=== PATIENT | female | born 1950 | race African-American/Black ===

== ENCOUNTER 2019-02-13 05:49 | Inpatient (IN) | payer MEDICARE, MEDICAID, OTHER ==
[2019-02-13 06:30] LABS: WHITE BLOOD COUNT 8.5 10^3/ul (4.8-10.8)
[2019-02-13 06:30] LABS: ADD MAN DIFF? NO; BASOPHILS % 0.2 % (0.0-2.0); EOSINOPHILS # 0.1 10^3/ul (0.0-0.5); EOSINOPHILS % 0.6 % (0.0-7.0); HEMATOCRIT 41.6 % (37.0-47.0); HEMOGLOBIN 13.2 g/dl (12.0-16.0); LYMPHOCYTES # 2.1 10^3/ul (0.8-2.9); LYMPHOCYTES % 24.9 % (15.0-51.0); MEAN CORPUSCULAR HEMOGLOBIN 31.3 pg (29.0-33.0); MEAN CORPUSCULAR HGB CONC 31.7 g/dl (32.0-37.0); MEAN CORPUSCULAR VOLUME 98.6 fl (82.0-101.0); MEAN PLATELET VOLUME 11.6 fl (7.4-10.4); MONOCYTE # 0.4 10^3/ul (0.3-0.9); MONOCYTES % 5.2 % (0.0-11.0); NEUTROPHIL # 5.9 10^3/ul (1.6-7.5); NEUTROPHILS % 68.6 % (39.0-77.0); PLATELET COUNT 158 10^3/UL (140-415); RED BLOOD COUNT 4.22 10^6/ul (4.20-5.40); RED CELL DISTRIBUTION WIDTH 13.1 % (11.5-14.5)
[2019-02-13 06:52] LABS: ANION GAP 6 (5-13); BLOOD UREA NITROGEN 16 mg/dl (7-20); CALCIUM 9.6 mg/dl (8.4-10.2); CARBON DIOXIDE 33 mmol/L (21-31); CHLORIDE 104 mmol/L (97-110); CREATININE 0.93 mg/dl (0.44-1.00); Estimated GFR > 60 mL/min (>60); GLUCOSE 103 mg/dl (70-220); POTASSIUM 3.4 mmol/L (3.5-5.1); SODIUM 143 mmol/L (135-144)
[2019-02-13 06:55] LABS: INR 0.87; PROTIME 11.9 Sec (11.9-14.9); PT RATIO 0.9
[2019-02-13] MEDS ORDERED: DESFLURANE 15 MIN (07:00)
[2019-02-13] MEDS ORDERED: ONDANSETRON 4 MG INJ IV ×3 (08:00→18:30)
[2019-02-13] MEDS ORDERED: ACETAMINOPHEN 325 MG TAB PO ×2 (08:00→09:30)
[2019-02-13] MEDS: FENTAnyl 50 MCG/ML VIAL IV ×2 (08:06→20:29)
[2019-02-13] MEDS: POTASSIUM CHLORIDE 100 ML IVPB (09:09)
[2019-02-13] MEDS ORDERED: NACL 0.9% 3 ML SYG IV (09:30)
[2019-02-13] MEDS ORDERED: LIDOCAINE 5% PATCH TD (09:30)
[2019-02-13] MEDS ORDERED: DOCUSATE SODIUM 250 MG CAP PO (09:30)
[2019-02-13] MEDS ORDERED: ONDANSETRON 4 MG TAB PO (09:30)
[2019-02-13] MEDS ORDERED: ZOLPIDEM 5 MG TAB PO (09:30)
[2019-02-13] MEDS: OXYCODONE/ACETAMINOPHEN (5/325) TAB PO (09:48)
[2019-02-13 10:22] LABS: ADD UMIC NO; UR ASCORBIC ACID NEGATIVE (NEGATIVE); UR BILIRUBIN (Dip) NEGATIVE (NEGATIVE); UR BLOOD (Dip) NEGATIVE (NEGATIVE); UR CLARITY CLEAR (CLEAR); UR COLOR YELLOW (YELLOW); UR GLUCOSE (Dip) NEGATIVE (NEGATIVE); UR KETONES (Dip) NEGATIVE (NEGATIVE); UR LEUKOCYTE ESTERASE (Dip) NEGATIVE Leu/ul (NEGATIVE); UR NITRITE (Dip) NEGATIVE (NEGATIVE); UR SPECIFIC GRAVITY (Dip) 1.009 (1.003-1.030); UR TOTAL PROTEIN (Dip) NEGATIVE (NEGATIVE); UR UROBILINOGEN (Dip) NEGATIVE (NEGATIVE)
[2019-02-13 10:29] LABS: HEPATITIS B SURFACE ANTIGEN NEGATIVE (NEGATIVE)
[2019-02-13 10:47] LABS: HEPATITIS C VIRAL ANTIBODY NEGATIVE (NEGATIVE)
[2019-02-13] MEDS ORDERED: CEFAZOLIN 1 GM INJ (14:07)
[2019-02-13] MEDS ORDERED: PROPOFOL 20 ML ×2 (14:07→16:12)
[2019-02-13] MEDS ORDERED: MIDAZOLAM 1 MG/ML 2 ML INJ (14:08)
[2019-02-13] MEDS ORDERED: METOCLOPRAMIDE 10 MG INJ (14:08)
[2019-02-13] MEDS ORDERED: ROPIVACAINE 0.5 % 30 ML VIAL (14:08)
[2019-02-13] MEDS ORDERED: ONDANSETRON 4 MG INJ (14:08)
[2019-02-13] MEDS ORDERED: morphine SULFATE/PF (10 MG/10 ML) INJ (14:08)
[2019-02-13] MEDS ORDERED: FENTAnyl 50 MCG/ML VIAL ×2 (14:12→19:11)
[2019-02-13] MEDS ORDERED: DIPHENHYDRAMINE 50 MG INJ (14:31)
[2019-02-13] MEDS ORDERED: MEPERIDINE 100 MG INJ (14:31)
[2019-02-13] MEDS ORDERED: DEXAMETHASONE 4 MG/ML 5 ML INJ (14:31)
[2019-02-13] MEDS ORDERED: ROCURONIUM 50 MG INJ ×2 (14:36→16:12)
[2019-02-13] MEDS: TRANEXAMIC ACID 1GM/100ML(PMX) 100 ML IV ×2 (15:00)
[2019-02-13] MEDS ORDERED: EPHEDrine 25 MG/5 ML SYG (15:05)
[2019-02-13] MEDS ORDERED: PHENYLephrine (100 MCG/ML) 10ML SYG (15:11)
[2019-02-13] MEDS ORDERED: OXYCODONE/ACETAMINOPHEN (5/325) TAB PO ×2 (15:30)
[2019-02-13] MEDS ORDERED: DIPHENHYDRAMINE 50 MG INJ IV ×2 (15:30→18:30)
[2019-02-13] MEDS: TRANEXAMIC ACID 1GM/100ML(PMX) 100 ML ×2 (15:36→18:01)
[2019-02-13] MEDS: LORAZEPAM 2 MG INJ IV (16:00)
[2019-02-13] MEDS: BACITRACIN 50000 UNITS INJ (16:01)
[2019-02-13] MEDS: POLYMYXIN B 500000 UNIT INJ (16:02)
[2019-02-13] MEDS ORDERED: METOPROLOL 5 MG INJ (16:02)
[2019-02-13] MEDS: TOBRAMYCIN 1.2 GM POWDER (16:04)
[2019-02-13] MEDS: VANCOMYCIN 1 GM INJ (16:05)
[2019-02-13] MEDS ORDERED: NEOSTIGMINE 3 MG/3 ML SYRINGE (18:03)
[2019-02-13] MEDS ORDERED: GLYCOPYRROLATE 0.4 MG INJ (18:03)
[2019-02-13] MEDS ORDERED: NA PHOSPHATE/BIPHOS 133 ML ENEMA PR (18:30)
[2019-02-13] MEDS ORDERED: BISACODYL 10 MG SUPP PR (18:30)
[2019-02-13] MEDS: DOCUSATE SODIUM 100 MG CAP PO ×2 (18:30→22:20)
[2019-02-13] MEDS ORDERED: MEPERIDINE 25 MG INJ IM (18:30)
[2019-02-13] MEDS ORDERED: oxyCODONE 5 MG TAB PO (18:30)
[2019-02-13] MEDS ORDERED: MAGNESIUM HYDROXIDE 30ML CUP PO (18:30)
[2019-02-13] MEDS ORDERED: NALOXONE (0.4 MG/ML) INJ IV (18:30)
[2019-02-13] MEDS ORDERED: SENNA/DOCUSATE NA (8.6MG/50MG) TAB PO (18:30)
[2019-02-13] MEDS: ONDANSETRON 4 MG INJ IV (19:16)
[2019-02-13] MEDS: MEPERIDINE 25 MG INJ IV (19:17)
[2019-02-13] MEDS: CEFAZOLIN 2 GM/50 ML (PMX) 50 ML IVPB (19:20)
[2019-02-13] MEDS: oxyCODONE 5 MG TAB PO (19:37)
[2019-02-13] MEDS: LACTATED RINGER'S 1,000 ML IV (19:41)
[2019-02-13] MEDS ORDERED: FENTAnyl 50 MCG/ML VIAL IV ×2 (20:30)
[2019-02-13] MEDS ORDERED: HEPARIN 5,000 UNIT/1 ML VIAL SC (21:00)
[2019-02-13] MEDS: METOPROLOL (XL) 100 MG TAB PO ×2 (21:00→22:37)
[2019-02-13] MEDS: LATANOPROST 0.005% 2.5 ML OPH BOTH EYES ×2 (21:00→22:19)
[2019-02-13] MEDS: GABAPENTIN 300 MG CAP PO ×2 (21:00→22:19)
[2019-02-13] MEDS ORDERED: oxyCODONE (CR) 40 MG TAB [oxyCONTIN] PO (21:00)
[2019-02-13] MEDS: oxyCODONE (CR) 20 MG TAB [oxyCONTIN] PO (22:12)
[2019-02-13] MEDS: SENNA TAB PO (22:20)
[2019-02-13] MEDS: hydrOXYzine HCL 25 MG TAB PO (22:20)
[2019-02-13] MEDS: traZODone 100 MG TAB PO (22:20)
[2019-02-13] MEDS: TOPIRAMATE 25 MG TAB PO (22:21)
[2019-02-13] MEDS: ARIPIPRAZOLE 5 MG TAB PO (22:21)
[2019-02-13] MEDS: CYANOCOBALAMIN 1000 MCG INJ IM (22:21)
[2019-02-13] MEDS: FAMOTIDINE 20 MG TAB PO (22:21)
[2019-02-13] MEDS: ACETAMINOPHEN 500 MG TAB PO (22:22)
[2019-02-14] MEDS: SOD CHLORIDE 0.9% 250 ML IV ×3 (00:09→01:18)
[2019-02-14 00:26] LABS: HEMATOCRIT 27.5 % (37.0-47.0); HEMOGLOBIN 9.1 g/dl (12.0-16.0)
[2019-02-14] MEDS: CEFAZOLIN 2 GM/50 ML (PMX) 50 ML IVPB ×2 (02:44→11:22)
[2019-02-14 05:10] LABS: ADD MAN DIFF? NO
[2019-02-14 05:13] LABS: BASOPHILS % 0.1 % (0.0-2.0); EOSINOPHILS % 0.2 % (0.0-7.0); HEMATOCRIT 28.9 % (37.0-47.0); HEMOGLOBIN 9.3 g/dl (12.0-16.0); MEAN CORPUSCULAR HEMOGLOBIN 31.5 pg (29.0-33.0); MEAN CORPUSCULAR HGB CONC 32.2 g/dl (32.0-37.0); MEAN PLATELET VOLUME 12.2 fl (7.4-10.4); MONOCYTE # 0.5 10^3/ul (0.3-0.9); MONOCYTES % 5.5 % (0.0-11.0); NEUTROPHIL # 7.2 10^3/ul (1.6-7.5); NEUTROPHILS % 82.6 % (39.0-77.0); PLATELET COUNT 124 10^3/UL (140-415); RED BLOOD COUNT 2.95 10^6/ul (4.20-5.40)
[2019-02-14 05:13] LABS: WHITE BLOOD COUNT 8.7 10^3/ul (4.8-10.8)
[2019-02-14] MEDS: ACETAMINOPHEN 500 MG TAB PO ×4 (05:24→21:17)
[2019-02-14] MEDS: PANTOPRAZOLE (EC) 40 MG TAB PO (05:24)
[2019-02-14] MEDS: VANCOMYCIN 1 GM (PMX) 250 ML IVPB ×2 (05:27→17:14)
[2019-02-14 05:52] LABS: INR 0.96; PROTIME 12.9 Sec (11.9-14.9)
[2019-02-14] MEDS: LACTATED RINGER'S 1,000 ML IV ×2 (06:08→17:16)
[2019-02-14 06:13] LABS: ALANINE AMINOTRANSFERASE 23 IU/L (13-69); ALBUMIN 2.6 g/dl (3.3-4.9); ALKALINE PHOSPHATASE 57 IU/L (42-121); ANION GAP 5 (5-13); ASPARTATE AMINO TRANSFERASE 22 IU/L (15-46); BILIRUBIN,INDIRECT 0.2 mg/dl (0-1.1); BILIRUBIN,TOTAL 0.2 mg/dl (0.2-1.3); BLOOD UREA NITROGEN 11 mg/dl (7-20); CALCIUM 8.2 mg/dl (8.4-10.2); CARBON DIOXIDE 29 mmol/L (21-31); CHLORIDE 109 mmol/L (97-110); CHOL/HDL RATIO 3.1 RATIO; CHOLESTEROL 154 mg/dl (100-200); CREATININE 0.68 mg/dl (0.44-1.00); Estimated GFR > 60 mL/min (>60); GLUCOSE 112 mg/dl (70-220); HDL CHOLESTEROL 49 mg/dl (35-98); LDL CHOLESTEROL,CALCULATED 82 mg/dl; MAGNESIUM 1.7 mg/dl (1.7-2.5); PHOSPHORUS 4.6 mg/dl (2.5-4.9); POTASSIUM 3.8 mmol/L (3.5-5.1); SODIUM 143 mmol/L (135-144); TOTAL PROTEIN 5.2 g/dl (6.1-8.1); TRIGLYCERIDES 113 mg/dl (0-149)
[2019-02-14] MEDS: oxyCODONE 15 MG TAB PO ×4 (06:16→19:08)
[2019-02-14 07:56] LABS: THYROID STIMULATING HORMONE 0.993 MIU/L (0.465-4.680)
[2019-02-14] MEDS: FAMOTIDINE 20 MG TAB PO ×2 (08:54→21:03)
[2019-02-14] MEDS: ESCITALOPRAM 10 MG TAB PO (08:54)
[2019-02-14] MEDS: POTASSIUM CHLORIDE 20 MEQ POWDER FOR ORAL SOLN PO (08:54)
[2019-02-14] MEDS: hydrOXYzine HCL 25 MG TAB PO ×2 (08:54→21:04)
[2019-02-14] MEDS: CHOLECALCIFEROL 2,000 UNIT CAP PO (08:55)
[2019-02-14] MEDS: oxyCODONE (CR) 20 MG TAB [oxyCONTIN] PO ×2 (08:55→21:04)
[2019-02-14] MEDS: DULOXETINE 30 MG CAP DR PO (08:55)
[2019-02-14] MEDS: BUPROPION (XL) 150 MG TAB PO (08:55)
[2019-02-14] MEDS ORDERED: AMLODIPINE 5 MG TAB PO (09:00)
[2019-02-14] MEDS ORDERED: oxyCODONE (CR) 20 MG TAB [oxyCONTIN] PO (09:00)
[2019-02-14] MEDS ORDERED: BUPROPION (XL) 150 MG TAB PO (09:00)
[2019-02-14 11:20] LABS: IRON 19 ug/dl (35-150)
[2019-02-14 11:30] LABS: % IRON SATURATION 10 % SAT (22-52); TOTAL IRON BINDING CAPACITY 185 ug/dl (241-421)
[2019-02-14] MEDS: ENOXAPARIN 40 MG/0.4 ML SYG SC (14:01)
[2019-02-14] MEDS: GABAPENTIN 300 MG CAP PO (21:00)
[2019-02-14] MEDS: DOCUSATE SODIUM 100 MG CAP PO (21:03)
[2019-02-14] MEDS: ARIPIPRAZOLE 5 MG TAB PO (21:03)
[2019-02-14] MEDS: SENNA TAB PO (21:04)
[2019-02-14] MEDS: TOPIRAMATE 25 MG TAB PO (21:04)
[2019-02-14] MEDS: traZODone 100 MG TAB PO (21:04)
[2019-02-14] MEDS: LATANOPROST 0.005% 2.5 ML OPH BOTH EYES (21:05)
[2019-02-15] MEDS: oxyCODONE 15 MG TAB PO ×4 (02:09→14:36)
[2019-02-15 06:11] LABS: INR 0.96; PROTIME 12.9 Sec (11.9-14.9)
[2019-02-15 06:20] LABS: ANION GAP 2 (5-13); BLOOD UREA NITROGEN 10 mg/dl (7-20); CALCIUM 8.4 mg/dl (8.4-10.2); CARBON DIOXIDE 31 mmol/L (21-31); CHLORIDE 106 mmol/L (97-110); CREATININE 0.73 mg/dl (0.44-1.00); Estimated GFR > 60 mL/min (>60); GLUCOSE 97 mg/dl (70-220); POTASSIUM 3.2 mmol/L (3.5-5.1); SODIUM 139 mmol/L (135-144)
[2019-02-15] MEDS: PANTOPRAZOLE (EC) 40 MG TAB PO (06:57)
[2019-02-15] MEDS: LACTATED RINGER'S 1,000 ML IV ×2 (08:00→20:30)
[2019-02-15] MEDS: ENOXAPARIN 40 MG/0.4 ML SYG SC (09:00)
[2019-02-15] MEDS ORDERED: METOPROLOL (XL) 50 MG TAB PO (09:00)
[2019-02-15] MEDS: oxyCODONE (CR) 20 MG TAB [oxyCONTIN] PO ×2 (09:40→21:05)
[2019-02-15] MEDS: DULOXETINE 30 MG CAP DR PO (09:40)
[2019-02-15] MEDS: hydrOXYzine HCL 25 MG TAB PO ×2 (09:40→21:04)
[2019-02-15] MEDS: CHOLECALCIFEROL 2,000 UNIT CAP PO (09:40)
[2019-02-15] MEDS: BUPROPION (XL) 150 MG TAB PO (09:40)
[2019-02-15] MEDS: DOCUSATE SODIUM 100 MG CAP PO ×2 (09:40→21:03)
[2019-02-15] MEDS: ESCITALOPRAM 10 MG TAB PO (09:40)
[2019-02-15] MEDS: FAMOTIDINE 20 MG TAB PO ×2 (09:40→21:04)
[2019-02-15] MEDS: POTASSIUM CHLORIDE 20 MEQ POWDER FOR ORAL SOLN PO (09:40)
[2019-02-15] MEDS: METOPROLOL (XL) 50 MG TAB PO ×2 (09:41→21:13)
[2019-02-15 11:32] LABS: ADD MAN DIFF? NO
[2019-02-15 11:35] LABS: BASOPHILS % 0.2 % (0.0-2.0); EOSINOPHILS # 0.1 10^3/ul (0.0-0.5); HEMATOCRIT 26.1 % (37.0-47.0); HEMOGLOBIN 8.2 g/dl (12.0-16.0); LYMPHOCYTES # 1.5 10^3/ul (0.8-2.9); LYMPHOCYTES % 24.2 % (15.0-51.0); MEAN CORPUSCULAR HEMOGLOBIN 31.3 pg (29.0-33.0); MEAN CORPUSCULAR HGB CONC 31.4 g/dl (32.0-37.0); MEAN CORPUSCULAR VOLUME 99.6 fl (82.0-101.0); MEAN PLATELET VOLUME 12.2 fl (7.4-10.4); MONOCYTE # 0.5 10^3/ul (0.3-0.9); MONOCYTES % 8.1 % (0.0-11.0); NEUTROPHILS % 66.2 % (39.0-77.0); PLATELET COUNT 112 10^3/UL (140-415); RED BLOOD COUNT 2.62 10^6/ul (4.20-5.40); RED CELL DISTRIBUTION WIDTH 13.2 % (11.5-14.5)
[2019-02-15 11:35] LABS: WHITE BLOOD COUNT 6.1 10^3/ul (4.8-10.8)
[2019-02-15] MEDS: SOD CHLORIDE 0.9% 250 ML IV (12:42)
[2019-02-15] MEDS: ACETAMINOPHEN 500 MG TAB PO ×3 (14:00→21:17)
[2019-02-15 18:15] LABS: ADD MAN DIFF? NO
[2019-02-15 18:20] LABS: WHITE BLOOD COUNT 7.2 10^3/ul (4.8-10.8)
[2019-02-15 18:20] LABS: BASOPHILS % 0.1 % (0.0-2.0); EOSINOPHILS # 0.1 10^3/ul (0.0-0.5); EOSINOPHILS % 0.8 % (0.0-7.0); HEMATOCRIT 24.4 % (37.0-47.0); HEMOGLOBIN 7.9 g/dl (12.0-16.0); LYMPHOCYTES # 1.6 10^3/ul (0.8-2.9); LYMPHOCYTES % 21.5 % (15.0-51.0); MEAN CORPUSCULAR HEMOGLOBIN 31.6 pg (29.0-33.0); MEAN CORPUSCULAR HGB CONC 32.4 g/dl (32.0-37.0); MEAN CORPUSCULAR VOLUME 97.6 fl (82.0-101.0); MEAN PLATELET VOLUME 11.9 fl (7.4-10.4); MONOCYTE # 0.6 10^3/ul (0.3-0.9); MONOCYTES % 7.8 % (0.0-11.0); NEUTROPHILS % 69.5 % (39.0-77.0); PLATELET COUNT 114 10^3/UL (140-415); RED CELL DISTRIBUTION WIDTH 13.1 % (11.5-14.5)
[2019-02-15] MEDS: GABAPENTIN 300 MG CAP PO (21:00)
[2019-02-15] MEDS: LATANOPROST 0.005% 2.5 ML OPH BOTH EYES (21:03)
[2019-02-15] MEDS: ARIPIPRAZOLE 5 MG TAB PO (21:03)
[2019-02-15] MEDS: TOPIRAMATE 25 MG TAB PO (21:04)
[2019-02-15] MEDS: SENNA TAB PO (21:04)
[2019-02-15] MEDS: traZODone 100 MG TAB PO (21:04)
[2019-02-16 05:11] LABS: ADD MAN DIFF? NO
[2019-02-16 05:24] LABS: BASOPHILS % 0.2 % (0.0-2.0); EOSINOPHILS # 0.1 10^3/ul (0.0-0.5); EOSINOPHILS % 1.1 % (0.0-7.0); HEMATOCRIT 24.1 % (37.0-47.0); HEMOGLOBIN 7.6 g/dl (12.0-16.0); LYMPHOCYTES # 1.5 10^3/ul (0.8-2.9); LYMPHOCYTES % 22.4 % (15.0-51.0); MEAN CORPUSCULAR HEMOGLOBIN 30.6 pg (29.0-33.0); MEAN CORPUSCULAR HGB CONC 31.5 g/dl (32.0-37.0); MEAN CORPUSCULAR VOLUME 97.2 fl (82.0-101.0); MONOCYTE # 0.5 10^3/ul (0.3-0.9); MONOCYTES % 7.6 % (0.0-11.0); NEUTROPHIL # 4.5 10^3/ul (1.6-7.5); NEUTROPHILS % 68.1 % (39.0-77.0); PLATELET COUNT 111 10^3/UL (140-415); RED BLOOD COUNT 2.48 10^6/ul (4.20-5.40); RED CELL DISTRIBUTION WIDTH 13.2 % (11.5-14.5)
[2019-02-16 05:24] LABS: WHITE BLOOD COUNT 6.6 10^3/ul (4.8-10.8)
[2019-02-16 05:36] LABS: ANION GAP 2 (5-13); BLOOD UREA NITROGEN 10 mg/dl (7-20); CALCIUM 8.3 mg/dl (8.4-10.2); CARBON DIOXIDE 32 mmol/L (21-31); CHLORIDE 106 mmol/L (97-110); Estimated GFR > 60 mL/min (>60); GLUCOSE 106 mg/dl (70-220); POTASSIUM 3.7 mmol/L (3.5-5.1); SODIUM 140 mmol/L (135-144)
[2019-02-16 05:40] LABS: INR 0.91; PROTIME 12.4 Sec (11.9-14.9)
[2019-02-16] MEDS: PANTOPRAZOLE (EC) 40 MG TAB PO (06:00)
[2019-02-16] MEDS: DOCUSATE SODIUM 100 MG CAP PO ×2 (08:43→21:51)
[2019-02-16] MEDS: oxyCODONE (CR) 20 MG TAB [oxyCONTIN] PO ×2 (08:43→21:51)
[2019-02-16] MEDS: METOPROLOL (XL) 50 MG TAB PO ×2 (08:44→21:52)
[2019-02-16] MEDS: DULOXETINE 30 MG CAP DR PO (08:45)
[2019-02-16] MEDS: CHOLECALCIFEROL 2,000 UNIT CAP PO (08:46)
[2019-02-16] MEDS: BUPROPION (XL) 150 MG TAB PO (08:46)
[2019-02-16] MEDS: FAMOTIDINE 20 MG TAB PO ×2 (08:46→21:51)
[2019-02-16] MEDS: ESCITALOPRAM 10 MG TAB PO (08:47)
[2019-02-16] MEDS: POTASSIUM CHLORIDE 20 MEQ POWDER FOR ORAL SOLN PO (08:47)
[2019-02-16] MEDS: oxyCODONE 5 MG TAB PO (08:48)
[2019-02-16] MEDS: ENOXAPARIN 40 MG/0.4 ML SYG SC (08:49)
[2019-02-16] MEDS ORDERED: ENOXAPARIN 40 MG/0.4 ML SYG SC (09:00)
[2019-02-16] MEDS ORDERED: HYDROCODONE/APAP (5/325) TAB PO (11:30)
[2019-02-16] MEDS ORDERED: SOD FERRIC GLUC COMPLX 125 MG in SOD CHLORIDE 0.9% 100 ML IVPB (11:30)
[2019-02-16] MEDS: ALBUMIN HUMAN 25% 100 ML IV (12:10)
[2019-02-16] MEDS: MAGNESIUM HYDROXIDE 30ML CUP PO (12:11)
[2019-02-16] MEDS: hydrOXYzine HCL 25 MG TAB PO ×2 (12:11→21:50)
[2019-02-16] MEDS: SOD FERRIC GLUC COMPLX 125 MG in SOD CHLORIDE 0.9% 100 ML IVPB (13:33)
[2019-02-16] MEDS: ACETAMINOPHEN 500 MG TAB PO ×3 (14:00→22:00)
[2019-02-16 15:09] LABS: HEMATOCRIT 24.2 % (37.0-47.0); HEMOGLOBIN 7.8 g/dl (12.0-16.0)
[2019-02-16] MEDS: oxyCODONE 15 MG TAB PO ×2 (15:16→23:44)
[2019-02-16] MEDS ORDERED: FERROUS FUMARATE (SR) TAB PO (21:00)
[2019-02-16] MEDS: GABAPENTIN 300 MG CAP PO (21:00)
[2019-02-16] MEDS: traZODone 100 MG TAB PO (21:50)
[2019-02-16] MEDS: LATANOPROST 0.005% 2.5 ML OPH BOTH EYES (21:51)
[2019-02-16] MEDS: ARIPIPRAZOLE 5 MG TAB PO (21:51)
[2019-02-16] MEDS: TOPIRAMATE 25 MG TAB PO (21:52)
[2019-02-16] MEDS: SENNA TAB PO (21:52)
[2019-02-17] MEDS: ACETAMINOPHEN 500 MG TAB PO ×2 (02:47→14:00)
[2019-02-17] MEDS: PANTOPRAZOLE (EC) 40 MG TAB PO (05:16)
[2019-02-17 05:34] LABS: ADD MAN DIFF? NO
[2019-02-17 05:38] LABS: BASOPHILS % 0.2 % (0.0-2.0); EOSINOPHILS # 0.1 10^3/ul (0.0-0.5); EOSINOPHILS % 1.8 % (0.0-7.0); HEMATOCRIT 23.5 % (37.0-47.0); HEMOGLOBIN 7.7 g/dl (12.0-16.0); LYMPHOCYTES # 1.3 10^3/ul (0.8-2.9); LYMPHOCYTES % 22.2 % (15.0-51.0); MEAN CORPUSCULAR HEMOGLOBIN 31.8 pg (29.0-33.0); MEAN CORPUSCULAR HGB CONC 32.8 g/dl (32.0-37.0); MEAN CORPUSCULAR VOLUME 97.1 fl (82.0-101.0); MEAN PLATELET VOLUME 11.6 fl (7.4-10.4); MONOCYTE # 0.5 10^3/ul (0.3-0.9); MONOCYTES % 8.1 % (0.0-11.0); NEUTROPHIL # 3.9 10^3/ul (1.6-7.5); NEUTROPHILS % 67.3 % (39.0-77.0); PLATELET COUNT 144 10^3/UL (140-415); RED BLOOD COUNT 2.42 10^6/ul (4.20-5.40); RED CELL DISTRIBUTION WIDTH 13.2 % (11.5-14.5)
[2019-02-17 05:38] LABS: WHITE BLOOD COUNT 5.7 10^3/ul (4.8-10.8)
[2019-02-17 05:57] LABS: ANION GAP 3 (5-13); BLOOD UREA NITROGEN 12 mg/dl (7-20); CALCIUM 8.5 mg/dl (8.4-10.2); CARBON DIOXIDE 31 mmol/L (21-31); CHLORIDE 105 mmol/L (97-110); CREATININE 0.77 mg/dl (0.44-1.00); Estimated GFR > 60 mL/min (>60); GLUCOSE 103 mg/dl (70-220); SODIUM 139 mmol/L (135-144)
[2019-02-17] MEDS: FAMOTIDINE 20 MG TAB PO (09:31)
[2019-02-17] MEDS: hydrOXYzine HCL 25 MG TAB PO (09:31)
[2019-02-17] MEDS: CHOLECALCIFEROL 2,000 UNIT CAP PO (09:31)
[2019-02-17] MEDS: oxyCODONE (CR) 20 MG TAB [oxyCONTIN] PO (09:31)
[2019-02-17] MEDS: ESCITALOPRAM 10 MG TAB PO (09:31)
[2019-02-17] MEDS: DULOXETINE 30 MG CAP DR PO (09:32)
[2019-02-17] MEDS: POTASSIUM CHLORIDE 20 MEQ POWDER FOR ORAL SOLN PO (09:32)
[2019-02-17] MEDS: BUPROPION (XL) 150 MG TAB PO (09:32)
[2019-02-17] MEDS: METOPROLOL (XL) 50 MG TAB PO (09:32)
[2019-02-17] MEDS: ENOXAPARIN 40 MG/0.4 ML SYG SC (09:33)
[2019-02-17 11:12] LABS: INR 0.95; PROTIME 12.8 Sec (11.9-14.9)
[2019-02-17] MEDS: oxyCODONE 15 MG TAB PO ×3 (11:42→18:58)
[2019-02-17] MEDS: SOD FERRIC GLUC COMPLX 125 MG in SOD CHLORIDE 0.9% 100 ML IVPB (15:01)
[2019-02-17] MEDS ORDERED: FERROUS SULFATE (EC) 325 MG TAB PO (21:00)
== END 2019-02-17 19:18 | DRG 470 ==
LOC: E/R 05:49 → MS1 07:43
PROC: 0SRR039 Replacement of Right Hip Joint, Femoral Surface with Ceramic Synthetic Substitute, Cemented, Open Approach (ICD-10-PCS; principal; 2019-02-13 14:30)
DX: S72.001A Fracture of unspecified part of neck of right femur, initial encounter for closed fracture (principal); E87.3 Alkalosis; D62 Acute posthemorrhagic anemia; E87.6 Hypokalemia; E78.5 Hyperlipidemia, unspecified; I10 Essential (primary) hypertension; F32.9 Major depressive disorder, single episode, unspecified; M79.7 Fibromyalgia; R53.81 Other malaise; G89.4 Chronic pain syndrome; Z98.1 Arthrodesis status; R29.6 Repeated falls; W01.0XXA Fall on same level from slipping, tripping and stumbling without subsequent striking against object, initial encounter; Y92.091 Bathroom in other non-institutional residence as the place of occurrence of the external cause
CPT/HCPCS: 71045; 72170; 73510; 73530; 73550; 80048; 80053; 80061; 81003; 83540; 83735; 84100; 84443; 85014; 85018; 85025; 85610; 86803; 86850; 86900; 86901; 87086; 87340; 88304; 88311; 93005; 97110; 97116; 97162; 97165; 97530; 97535; 99285-25

== ENCOUNTER 2019-02-17 21:02 | Emergency (ER) | payer MEDICARE, MEDICAID ==
[2019-02-17] MEDS: SOD CHLORIDE 0.9% 100 ML (21:31)
[2019-02-17] MEDS: IOHEXOL 300MG/ML 150 ML BTL (21:31)
[2019-02-17 21:48] LABS: ADD MAN DIFF? NO
[2019-02-17] MEDS: FENTAnyl 50 MCG/ML VIAL IV (21:49)
[2019-02-17 21:50] LABS: WHITE BLOOD COUNT 6.5 10^3/ul (4.8-10.8)
[2019-02-17 21:50] LABS: BASOPHILS % 0.2 % (0.0-2.0); EOSINOPHILS # 0.1 10^3/ul (0.0-0.5); EOSINOPHILS % 1.5 % (0.0-7.0); HEMATOCRIT 25.3 % (37.0-47.0); HEMOGLOBIN 8.1 g/dl (12.0-16.0); LYMPHOCYTES # 1.3 10^3/ul (0.8-2.9); LYMPHOCYTES % 19.7 % (15.0-51.0); MEAN CORPUSCULAR HEMOGLOBIN 31.3 pg (29.0-33.0); MEAN CORPUSCULAR VOLUME 97.7 fl (82.0-101.0); MEAN PLATELET VOLUME 11.7 fl (7.4-10.4); MONOCYTE # 0.6 10^3/ul (0.3-0.9); MONOCYTES % 8.8 % (0.0-11.0); NEUTROPHIL # 4.5 10^3/ul (1.6-7.5); NEUTROPHILS % 69.3 % (39.0-77.0); NUCLEATED RED BLOOD CELLS% 0.3 /100WBC (0.0-0.0); PLATELET COUNT 186 10^3/UL (140-415); RED BLOOD COUNT 2.59 10^6/ul (4.20-5.40); RED CELL DISTRIBUTION WIDTH 13.2 % (11.5-14.5)
[2019-02-17 22:06] LABS: ALANINE AMINOTRANSFERASE 22 IU/L (13-69); ALBUMIN 3.1 g/dl (3.3-4.9); ALKALINE PHOSPHATASE 78 IU/L (42-121); ANION GAP 5 (5-13); ASPARTATE AMINO TRANSFERASE 29 IU/L (15-46); BILIRUBIN,INDIRECT 0.4 mg/dl (0-1.1); BILIRUBIN,TOTAL 0.4 mg/dl (0.2-1.3); BLOOD UREA NITROGEN 13 mg/dl (7-20); CARBON DIOXIDE 28 mmol/L (21-31); CHLORIDE 104 mmol/L (97-110); CREATININE 0.84 mg/dl (0.44-1.00); Estimated GFR > 60 mL/min (>60); GLUCOSE 124 mg/dl (70-220); POTASSIUM 4.4 mmol/L (3.5-5.1); SODIUM 137 mmol/L (135-144); TOTAL PROTEIN 6.2 g/dl (6.1-8.1)
== END 2019-02-18 00:03 | disposition home or self-care (01) ==
LOC: E/R 02-18 00:03
DX: D64.9 Anemia, unspecified (principal); I10 Essential (primary) hypertension
CPT/HCPCS: 74177; 80053; 85025; 96374; 99285-25

== ENCOUNTER → 2019-03-09 | Outpatient (CLI) | payer MEDICARE, MEDICAID | END | disposition home or self-care (01) | LOC: HKI 14:33 | DX: Z47.1 Aftercare following joint replacement surgery (principal); Z96.641 Presence of right artificial hip joint ==